=== PATIENT | male | born 1960 | race Caucasian/White ===

== ENCOUNTER 2018-03-17 18:07 | Emergency (ER) | payer SELFPAY ==
[~2018-03-17] VITALS: Ht 172.7 cm; Wt 135.0 kg
[2018-03-17 18:24] VITALS: BP 166/77; PULSE 95; RESP 17; TEMP 98.3; O2SAT 95
--- NOTE | 2018-03-17 18:47 | PD ---
HPI Chief Complaint: Abdominal Pain Time Seen by Provider: 18:38 Travel History International Travel<30 days: No Contact w/Intl Traveler<30days: No Traveled to known affect area: No History of Present Illness HPI 57-year-old male patient with history of diabetes, had cholecystectomy done in [facility] 2-1/2 weeks ago, has been following up with surgeon for problems with ongoing fluid leak from his upper abdominal incision site, was told that it will eventually stop but he states that he is continuing to leak and he has been told by his insurance company to come here for further evaluation. He denies any fevers or any other issues. Modifying Factors: None Associated Signs & Symptoms: Ongoing fluid leakage from abdominal incision Risk Factors: Status post cholecystectomy 2 and half weeks ago [facility] Social History Tobacco Use: No Allergies-Medications (Allergen,Severity, Reaction): Coded Allergies: No Known Allergies (Unverified , 03/17/18) Review of Systems Except as stated in HPI: all other systems reviewed are Neg Physical Exam Narrative GENERAL: Well-developed middle-age male patient currently and mild distress. Awake and oriented 3. SKIN: Focused skin assessment warm/dry. HEAD: Atraumatic. Normocephalic. EYES: Pupils equal and round. No scleral icterus. No injection or drainage. ENT: No nasal bleeding or discharge. Mucous membranes pink and moist. NECK: Trachea midline. No JVD. CARDIOVASCULAR: Regular rate and rhythm. No murmur appreciated. RESPIRATORY: No accessory muscle use. Clear to auscultation. Breath sounds equal bilaterally. GASTROINTESTINAL: Abdomen moderately distended and protuberant, there is a poorly healing right upper quadrant abdominal wound that is continually leaking clear fluid, mildly tender to palpation. Hepatic and splenic margins not palpable. There are several notable macular erythematous rash to the abdominal wall surrounding the site, patient states that is from tape. MUSCULOSKELETAL: No obvious deformities. No clubbing. No cyanosis. No edema. NEUROLOGICAL: Awake and alert. No obvious cranial nerve deficits. Motor grossly within normal limits. Normal speech. PSYCHIATRIC: Appropriate mood and affect; insight and judgment normal. Data Data Last Documented VS Vital Signs Date Time Temp Pulse Resp B/P (MAP) Pulse Ox O2 Delivery O2 Flow Rate FiO2 03/17/18 18:24 98.3 95 17 166/77 (106) 95 Orders Orders Complete Blood Count With Diff (03/17/18 18:38) Comprehensive Metabolic Panel (03/17/18 18:38) Lipase (03/17/18 18:38) Urinalysis - C+S If Indicated (03/17/18 18:38) Ct Abd/Pel W Iv Contrast(Rout) (03/17/18 18:38) Iv Access Insert/Monitor (03/17/18 18:38) Ecg Monitoring (03/17/18 18:38) Oximetry (03/17/18 18:38) Labs Laboratory Tests Test 03/17/18 18:40 White Blood Count 9.0 TH/MM3 Red Blood Count 5.23 MIL/MM3 Hemoglobin 14.9 GM/DL Hematocrit 44.1 % Mean Corpuscular Volume 84.3 FL Mean Corpuscular Hemoglobin 28.5 PG Mean Corpuscular Hemoglobin Concent 33.8 % Red Cell Distribution Width 14.2 % Platelet Count 178 TH/MM3 Mean Platelet Volume 8.1 FL Neutrophils (%) (Auto) 71.4 % Lymphocytes (%) (Auto) 19.2 % Monocytes (%) (Auto) 7.9 % Eosinophils (%) (Auto) 0.7 % Basophils (%) (Auto) 0.8 % Neutrophils # (Auto) 6.4 TH/MM3 Lymphocytes # (Auto) 1.7 TH/MM3 Monocytes # (Auto) 0.7 TH/MM3 Eosinophils # (Auto) 0.1 TH/MM3 Basophils # (Auto) 0.1 TH/MM3 CBC Comment DIFF FINAL Differential Comment MDM Medical Decision Making Medical Screen Exam Complete: Yes Emergency Medical Condition: Yes Medical Record Reviewed: Yes Interpretation(s) Laboratory Tests Test 03/17/18 18:40 Neutrophils (%) (Auto) 71.4 % (16.0-70.0) Differential Diagnosis Ascites drainage versus obstruction versus wound infection Narrative Course Lab work and CAT scan was ordered for further evaluation of this wound. Physician Communication Physician Communication Case is signed out at [address] Coelho awaiting lab work and CAT scan. Disposition based on findings. Diagnosis Primary Impression: Open draining abdominal incision Emily Martins MD March 17, 2018 18:47
[2018-03-17 18:57] LABS: AUTOMATED NEUTROPHIL # 6.4 TH/MM3 (1.8-7.7); BASOPHIL # 0.1 TH/MM3 (0-0.2); BASOPHIL % 0.8 % (0.0-2.0); EOSINOPHIL # 0.1 TH/MM3 (0-0.4); EOSINOPHIL % 0.7 % (0.0-4.0); HEMATOCRIT 44.1 % (39.0-51.0); HEMOGLOBIN 14.9 GM/DL (13.0-17.0); LYMPH % 19.2 % (9.0-44.0); LYMPHOCYTE # 1.7 TH/MM3 (1.0-4.8); MEAN CELL VOLUME 84.3 FL (80.0-100.0); MEAN CORPUSCULAR HEMOGLOBIN 28.5 PG (27.0-34.0); MEAN CORPUSCULAR HGB CONC 33.8 % (32.0-36.0); MEAN PLATELET VOLUME 8.1 FL (7.0-11.0); MONO % 7.9 % (0.0-8.0); MONOCYTE # 0.7 TH/MM3 (0-0.9); NEUT % 71.4 % (16.0-70.0); PLATELET COUNT 178 TH/MM3 (150-450); RED BLOOD COUNT 5.23 MIL/MM3 (4.50-5.90); RED CELL DISTRIBUTION WIDTH 14.2 % (11.6-17.2)
[2018-03-17 19:17] LABS: ALBUMIN 2.6 GM/DL (3.4-5.0); ALT (GPT) 38 U/L (12-78); AST (GOT) 39 U/L (15-37); BICARBONATE 24.9 MEQ/L (21.0-32.0); BLOOD UREA NITROGEN 10 MG/DL (7-18); CALCIUM 8.2 MG/DL (8.5-10.1); CHLORIDE 104 MEQ/L (98-107); CREATININE 1.05 MG/DL (0.60-1.30); GLOMERULAR FILTRATION RATE 73 ML/MIN (>89); GLUCOSE,RANDOM 157 MG/DL (74-106); SODIUM (NA) 138 MEQ/L (136-145)
[2018-03-17 19:19] LABS: ALKALINE PHOSPHATASE 93 U/L (45-117); TOTAL BILIRUBIN ADULT 0.4 MG/DL (0.2-1.0); TOTAL PROTEIN 6.5 GM/DL (6.4-8.2)
[2018-03-17] MEDS ORDERED: METF500T PO (19:34)
[2018-03-17] MEDS ORDERED: BUPR150T3 (19:34)
[2018-03-17] MEDS ORDERED: GABA600T PO ×2 (19:34)
[2018-03-17] MEDS ORDERED: AMLO5 PO (19:34)
[2018-03-17] MEDS ORDERED: INSU1INJ14 SQ (19:34)
[2018-03-17] MEDS ORDERED: NOVOINJ3 SQ (19:34)
[2018-03-17] MEDS ORDERED: FURO1TAB62 PO (19:34)
--- NOTE | 2018-03-17 19:34 | PD ---
Physical Exam Date Seen by Provider: March 17, 2018 Time Seen by Provider: 19:30 Narrative pt signed out to me and shift change to follow CT and call surgery for possible post operative complications of recent laproscope cholecystitis with continous leakage of serous fluid from RUQ trochar area , pt has been to 2 other ER and received CT and no intervention , As per prior attending report his, ' insurance company felt he should seen another doctor surgeon at another hospital , as he is having too many ER visits for same claim." Awaiting CT results and will consult surgery oncall Data Data Last Documented VS Vital Signs Date Time Temp Pulse Resp B/P (MAP) Pulse Ox O2 Delivery O2 Flow Rate FiO2 03/17/18 21:22 20 03/17/18 20:44 91 153/69 (97) 96 Nasal Cannula 2.00 03/17/18 18:24 98.3 Orders Orders Complete Blood Count With Diff (03/17/18 18:38) Comprehensive Metabolic Panel (03/17/18 18:38) Lipase (03/17/18 18:38) Urinalysis - C+S If Indicated (03/17/18 18:38) Iv Access Insert/Monitor (03/17/18 18:38) Ecg Monitoring (03/17/18 18:38) Oximetry (03/17/18 18:38) Ondansetron Inj (Zofran Inj) (03/17/18 20:30) Morphine Inj (Morphine Inj) (03/17/18 20:30) Us Abdomen Gallbladder (03/17/18 ) Morphine Inj (Morphine Inj) (03/17/18 23:45) Ed Discharge Order (03/18/18 00:56) Labs Laboratory Tests Test 03/17/18 18:40 03/17/18 19:40 White Blood Count 9.0 TH/MM3 Red Blood Count 5.23 MIL/MM3 Hemoglobin 14.9 GM/DL Hematocrit 44.1 % Mean Corpuscular Volume 84.3 FL Mean Corpuscular Hemoglobin 28.5 PG Mean Corpuscular Hemoglobin Concent 33.8 % Red Cell Distribution Width 14.2 % Platelet Count 178 TH/MM3 Mean Platelet Volume 8.1 FL Neutrophils (%) (Auto) 71.4 % Lymphocytes (%) (Auto) 19.2 % Monocytes (%) (Auto) 7.9 % Eosinophils (%) (Auto) 0.7 % Basophils (%) (Auto) 0.8 % Neutrophils # (Auto) 6.4 TH/MM3 Lymphocytes # (Auto) 1.7 TH/MM3 Monocytes # (Auto) 0.7 TH/MM3 Eosinophils # (Auto) 0.1 TH/MM3 Basophils # (Auto) 0.1 TH/MM3 CBC Comment DIFF FINAL Differential Comment Blood Urea Nitrogen 10 MG/DL Creatinine 1.05 MG/DL Random Glucose 157 MG/DL Total Protein 6.5 GM/DL Albumin 2.6 GM/DL Calcium Level 8.2 MG/DL Alkaline Phosphatase 93 U/L Aspartate Amino Transf (AST/SGOT) 39 U/L Alanine Aminotransferase (ALT/SGPT) 38 U/L Total Bilirubin 0.4 MG/DL Sodium Level 138 MEQ/L Potassium Level 4.3 MEQ/L Chloride Level 104 MEQ/L Carbon Dioxide Level 24.9 MEQ/L Anion Gap 9 MEQ/L Estimat Glomerular Filtration Rate 73 ML/MIN Lipase 115 U/L Urine Color YELLOW Urine Turbidity CLEAR Urine pH 6.0 Urine Specific [place] 1.010 Urine Protein 30 mg/dL Urine Glucose (UA) NEG mg/dL Urine Ketones NEG mg/dL Urine Occult Blood NEG Urine Nitrite NEG Urine Bilirubin NEG Urine Urobilinogen 0.2 MG/DL Urine Leukocyte Esterase NEG Urine WBC LESS THAN 1 /hpf Urine Squamous Epithelial Cells <1 /hpf Microscopic Urinalysis Comment CULT NOT INDICATED MDM Supervised Visit with [facility]: No Differential Diagnosis seroma vs abscess vs peritoneal tract of fluid leak other Narrative Course Repeat physical exam patient has mild oozing of serous fluid from a very small opening in the xiphoid process area of his abdomen he is morbidly obese awaiting transfer information from [facility] to send us the CAT scan he had 2 days ago. I spoke with Dr. Gonzalez who will see the patient in his office on Tuesday and he will most likely open it up and pack it so it can heal by secondary intention and closed the seroma patient agrees with the outpatient plan and is discharged home Procedures Procedure Narrative i did a bedside ABDO US to identify a seroma like collection just below the skin where the weeping trochar site was oozing clear fluid Physician Communication Physician Communication Dr Gonzalez of [facility] Diagnosis Primary Impression: Open draining abdominal incision Qualified Codes: T81.31XA - Disruption of external operation (surgical) wound , not elsewhere classified, initial encounter Additional Impression: Abdominal wall seroma Qualified Codes: T88.8XXD - Other specified complications of surgical and medical care, not elsewhere classified, subsequent encounter; T79.2XXD - Traumatic secondary and recurrent hemorrhage and seroma, subsequent encounter Referrals: Jose De Jesus Gonzalez MD Patient Instructions: General Instructions, Seroma (DC), Seroma (GEN) Scripts Ibuprofen (Ibuprofen) 600 Mg Tab 600 MG PO Q6H Y for Pain/Inflammation, #40 TAB 0 Refills Prov: Pankaj Coelho MD 03/18/18 Tramadol (Tramadol) 50 Mg Tab 50 MG PO Q6H Y for PAIN, #10 TAB 0 Refills Prov: Pankaj Coelho MD 03/18/18 Diazepam (Valium) 5 Mg Tab 5 MG PO TID Y for MUSCLE SPASM, #15 TAB 0 Refills Prov: Pankaj Coelho MD 03/18/18 Disposition: 01 DISCHARGE HOME Condition: Good Pankaj Coelho MD March 17, 2018 19:34
[2018-03-17 20:20] LABS: BILIRUBIN, URINE NEG (NEG); BLOOD, URINE NEG (NEG); GLUCOSE,URINE NEG (NEG); KETONE, URINE NEG (NEG); NITRITE,URINE NEG (NEG); URINE COLOR YELLOW (YELLW/STRAW); URINE LEUKOCYTE ESTERASE NEG (NEG)
[2018-03-17 20:21] VITALS: BP 153/67; PULSE 89; RESP 16; O2SAT 94
[2018-03-17 20:28] LABS: SQUAMOUS EPITHELIAL CELL URINE <1 /hpf (0-5)
[2018-03-17] MEDS ORDERED: MORPHINE SULFATE 2 MG/ML SYRINGE IV PUSH ONE ×2 (20:30→23:45)
[2018-03-17] MEDS ORDERED: ONDANSETRON HCL 4 MG/2 ML VIAL IV PUSH ONE (20:30)
[2018-03-17 20:44] VITALS: BP 153/69; PULSE 91; RESP 16; O2SAT 96
[2018-03-17 21:22] VITALS: RESP 20
--- NOTE | 2018-03-18 00:17 | RADRPT ---
EXAM DATE/TIME: 03/17/2018 23:20 [place] COMPARISON: No previous studies available for comparison. INDICATIONS : Recent cholecystectomy 2 weeks ago. Drainage from incision site with abdominal pain. MEDICAL HISTORY : Hypertension. Diabetes mellitus type 2. SURGICAL HISTORY : Cholecystectomy. ENCOUNTER: Initial ACUITY: 2 weeks PAIN SCORE: 7/10 LOCATION: Right upper quadrant MEASUREMENTS: LIVER: 25.1 cm length COMMON DUCT: 5 mm RIGHT KIDNEY: 11.2 x 6.1 x 5.5 cm FINDINGS: Less than 2 cm irregular fluid collection in the deep subcutaneous tissues underneath the patient's e pigastric incision. LIVER: Appears to be some perihepatic fluid along the dome region. No evidence of liver mass or biliary duct al dilatation. Gallbladder surgically absent with no suspicious process or collection in the gallblad latanya fossa. COMMON DUCT: No intraluminal mass or stone visualized. GALLBLADDER: Surgically absent PANCREAS: The obscured RIGHT KIDNEY: No evidence of hydronephrosis, stone, or mass. CONCLUSION: Small subcutaneous fluid collection. Possible minimal perihepatic subphrenic fluid. CT examination of the abdomen suggested for further evaluation if clinically indicated. Porfirio Escobedo MD on March 18, 2018 at 0:12 Board Certified Radiologist. This report was verified electronically.
[2018-03-18] MEDS ORDERED: DIAZ5 PO (00:51)
[2018-03-18] MEDS ORDERED: TRAM50TA PO (00:51)
[2018-03-18] MEDS ORDERED: IBUP-232 PO (00:51)
== END 2018-03-18 01:14 | disposition home or self-care (01) ==
LOC: NEPC 18:07
DX: T81.31XA Disruption of external operation (surgical) wound, not elsewhere classified, initial encounter (principal); T88.8XXA Other specified complications of surgical and medical care, not elsewhere classified, initial encounter; E11.9 Type 2 diabetes mellitus without complications; Z90.49 Acquired absence of other specified parts of digestive tract
CPT/HCPCS: 76705; 80053; 81001; 83690; 85025; 96374; 96375; 96376; 99284; J2270; J2405